=== PATIENT | female | born 1940 | race Two or more races ===

== ENCOUNTER → 2024-07-22 | Outpatient (CLI) | payer OTHER, SELFPAY ==
[2024-07-22 10:03] LABS: Basophils % (Auto) 0 % (0-2.5); Eosinophils # (Auto) 0.1 Thou/mm3 (0.0-0.5); Eosinophils % (Auto) 2 % (0-10); Hematocrit 40.9 % (36.0-46.0); Hemoglobin 13.7 g/dL (12.0-16.0); Immature Granulocytes % (Auto) 0 % (0-0); Immature Granulocytes Auto 0.01 Thou/mm3 (0.00-0.00); Lymphocytes # (Auto) 2.2 Thou/mm3 (1.0-4.8); Lymphocytes % (Auto) 33 % (10-50); Mean Corpuscular HGB Conc 33.5 g/dl (31.0-37.0); Mean Corpuscular Hemoglobin 29.2 pg (25.0-35.0); Mean Corpuscular Volume 87 fL (80-100); Monocytes # (Auto) 0.5 Thou/mm3 (0.0-0.8); Monocytes % (Auto) 7 % (0-12); Neutrophils # (Auto) 3.7 Thou/mm3 (1.8-7.7); Neutrophils % (Auto) 57 % (37-80); Nucleated Red Blood Cell % 0 /100 WBC (0); Platelet Count 440 Thou/mm3 (140-440); RDW Standard Deviation 42.8 fL (36.4-46.3); Red Blood Count 4.69 Miln/mm3 (4.00-5.20); White Blood Count 6.5 Thou/mm3 (3.6-11.0)
[2024-07-22 10:15] LABS: Glucose Estimated Average 137 mg/dL (80-131); Hemoglobin A1C 6.4 % Hgb (4.8-6.0)
[2024-07-22 11:25] LABS: Alanine Aminotransferase 10 U/L (10-49); Albumin, Serum 4.4 gm/dL (3.4-4.8); Albumin/Globulin Ratio 1.8 (1.2-2.2); Alkaline Phosphatase 82 U/L (46-116); Anion Gap 9 (7-16); Aspartate Amino Transferase 19 U/L (0-34); BUN/Creatinine Ratio 16 Ratio (12-20); Bilirubin,Total 0.4 mg/dL (0.3-1.2); Blood Urea Nitrogen 18 mg/dL (9-23); Calcium 9.7 mg/dL (8.3-10.6); Calcium (Corrected) 9.7 mg/dL (8.5-10.1); Carbon Dioxide 27.3 mMol/L (20.0-31.0); Cardiac Risk Estimate 3.7 RATIO (3.7-5.6); Chloride 105 mMol/L (98-107); Cholesterol 169 mg/dL (132-200); Creatinine (Component) 1.1 mg/dL (0.6-1.3); Globulin 2.4 gm/dL (2.3-3.5); Glucose 141 mg/dL (74-106); HDL Cholesterol 46 mg/dL (40-60); LDL Cholesterol,Calculated 99 mg/dL (0-130); Osmolality,Calculated 285 (275-295); Potassium 4.6 mMol/L (3.4-5.1); Sodium 141 mMol/L (136-145); Thyroid Stimulating Hormone 2.32 uIU/mL (0.55-4.78); Total Protein 6.8 gm/dL (5.7-8.2); Triglycerides 119 mg/dL (30-150); eGFR 50 See Note
[2024-07-22 14:42] LABS: Creatinine MALB Rnd Ur 43 mg/dL (30-125); Microalbumin Creat Ratio 21 mg/gCrea (<30); Microalbumin, Random Urine 9 mg/L (0-300)
== END | disposition home or self-care (01) ==
PROVIDERS: PCP Family Medicine; Referring Provider Family Medicine; Visit Provider Family Medicine
DX: I10 Essential (primary) hypertension (principal); E11.65 Type 2 diabetes mellitus with hyperglycemia
CPT/HCPCS: 36415; 80053; 80061; 82043; 82570; 83036; 84443; 85025

== ENCOUNTER → 2024-10-25 | Outpatient (CLI) | payer OTHER, SELFPAY ==
[2024-10-25 08:59] LABS: Glucose Estimated Average 143 mg/dL (80-131); Hemoglobin A1C 6.6 % Hgb (4.8-6.0)
== END | disposition home or self-care (01) ==
LOC: COPL 07:23
PROVIDERS: PCP Family Medicine; Referring Provider Family Medicine; Visit Provider Family Medicine
DX: E11.65 Type 2 diabetes mellitus with hyperglycemia (principal)
CPT/HCPCS: 36415; 83036

== ENCOUNTER → 2025-01-23 | Outpatient (CLI) | payer OTHER, SELFPAY ==
[2025-01-23 11:22] LABS: Glucose Estimated Average 174 mg/dL (80-131); Hemoglobin A1C 7.7 % Hgb (4.8-6.0)
== END | disposition home or self-care (01) ==
PROVIDERS: PCP Family Medicine; Referring Provider Family Medicine; Visit Provider Family Medicine
DX: E11.65 Type 2 diabetes mellitus with hyperglycemia (principal)
CPT/HCPCS: 36415; 83036

== ENCOUNTER 2025-04-27 07:50 | Emergency (ER) | payer OTHER, SELFPAY ==
[2025-04-27 08:04] VITALS: BP 184/76; BP 211/67; PULSE 57; RESP 19; TEMP 36.3; O2SAT 97
--- NOTE | 2025-04-27 08:09 | EKG_ITS ---
[facility] Test Date: 2025-04-27 Pat Name: MIL MCCORMICK Department: Room: - Gender: Female Household Cook: : 1940 Requested By: Jayme Wilks Order Number: [id number] Reading MD: Jayme Wilks Measurements Intervals [place] Rate: 53 P: 56 NV: 167 QRS: -18 QRSD: 86 T: 56 QT: 418 QTc: 395 Interpretive Statements SINUS BRADYCARDIA Compared to ECG 06/13/2022 09:20:05 No significant changes /store/S0/[id number].pdf
--- NOTE | 2025-04-27 08:09 | PD.EDRME ---
Rapid Medical Screening Exam RME Arrival date/time: 04/27/25 07:50 84-year-old female with a history of hypertension, type 2 diabetes presents to the emergency room with a chief complaint of dizziness and lightheadedness x 2 days I have greeted and performed a focused initial assessment of this patient. A comprehensive ED assessment and evaluation of the patient, analysis of all test results, and completion of the medical decision making process will be conducted by additional ED providers. Chief Complaint: Dizziness Time Seen by Provider: 04/27/25 08:00 Vital signs: Vital Signs Temperature 97.4 F 04/27/25 08:04 Pulse Rate 57 L 04/27/25 08:04 Respiratory Rate 19 04/27/25 08:04 Blood Pressure 211/67 H 04/27/25 08:04 Pulse Oximetry (%) 97 04/27/25 08:04 Oxygen Delivery Method Room Air 04/27/25 08:04 Vital signs reviewed by provider: Yes Exam: GCS of 15, AAO x 3 Pupils are PERRLA EOMs are intact Clear bilateral lung sounds. Strong and regular rhythm S1 and S2 noted Clinical Impression: STEMI/NSTEMI/dizziness/vertigo
[2025-04-27 08:40] LABS: Basophils # (Auto) 0.0 Thou/mm3 (0.0-0.2); Basophils % (Auto) 1 % (0-2.5); Eosinophils # (Auto) 0.1 Thou/mm3 (0.0-0.5); Eosinophils % (Auto) 2 % (0-10); Hematocrit 41.0 % (36.0-46.0); Hemoglobin 13.6 g/dL (12.0-16.0); Immature Granulocytes Auto 0.01 Thou/mm3 (0.00-0.00); Lymphocytes # (Auto) 1.8 Thou/mm3 (1.0-4.8); Lymphocytes % (Auto) 30 % (10-50); Mean Corpuscular HGB Conc 33.2 g/dl (31.0-37.0); Mean Corpuscular Hemoglobin 28.9 pg (25.0-35.0); Mean Corpuscular Volume 87 fL (80-100); Monocytes # (Auto) 0.5 Thou/mm3 (0.0-0.8); Monocytes % (Auto) 9 % (0-12); Neutrophils # (Auto) 3.5 Thou/mm3 (1.8-7.7); Neutrophils % (Auto) 59 % (37-80); Nucleated Red Blood Cell # 0.00 Thou/mm3 (0.00-0.00); Nucleated Red Blood Cell % 0 /100 WBC (0); Platelet Count 359 Thou/mm3 (140-440); RDW Standard Deviation 43.8 fL (36.4-46.3); Red Blood Count 4.71 Miln/mm3 (4.00-5.20); White Blood Count 5.9 Thou/mm3 (3.6-11.0)
[2025-04-27 09:26] LABS: INR 1.0 (0.9-1.3); Partial Thromboplastin Time 26.2 Seconds (22.0-36.0); Prothrombin Time 10.8 Seconds (9.0-12.2)
[2025-04-27 09:56] LABS: Alanine Aminotransferase < 7 U/L (10-49); Albumin, Serum 4.8 gm/dL (3.4-4.8); Albumin/Globulin Ratio 2.0 (1.2-2.2); Alkaline Phosphatase 120 U/L (46-116); Anion Gap 9 (7-16); Aspartate Amino Transferase 17 U/L (0-34); BUN/Creatinine Ratio 15 Ratio (12-20); Bilirubin,Total 0.4 mg/dL (0.3-1.2); Blood Urea Nitrogen 17 mg/dL (9-23); Calcium 9.7 mg/dL (8.3-10.6); Calcium (Corrected) 9.7 mg/dL (8.5-10.1); Carbon Dioxide 25.6 mMol/L (20.0-31.0); Chloride 106 mMol/L (98-107); Creatinine (Component) 1.1 mg/dL (0.6-1.3); Estimated Creatinine Clearance 30.3 mL/min (>60); Globulin 2.4 gm/dL (2.3-3.5); Glucose 116 mg/dL (74-106); Magnesium 2.2 mg/dL (1.6-2.6); Osmolality,Calculated 283 (275-295); Potassium 5.0 mMol/L (3.4-5.1); Sodium 141 mMol/L (136-145); Total Protein 7.2 gm/dL (5.7-8.2); eGFR 50 See Note
[2025-04-27 10:08] LABS: B-Type Natriuretic Peptide 52 pg/mL (0-100)
[2025-04-27 10:14] LABS: Troponin I 0.056 ng/mL (0.0-0.045)
[2025-04-27 10:20] VITALS: BP 171/76; BP 184/72; PULSE 64; RESP 18; TEMP 36.4; O2SAT 98
[2025-04-27 10:37] LABS: Collection Type, Urine Clean Catch; RBC,Urine 0 /hpf (0-3); Squamous Epithelial Cell,Urine 0 /hpf (0-5)
[2025-04-27 10:52] LABS: Bilirubin,Urine Negative (Negative); Blood,Urine Negative (Negative); Clarity,Urine Clear (Clear/Hazy); Color,Urine Colorless (Lt Yel-Yel); Culture Indicated,Urine Not Indicated; Glucose, Urine 4+ (Negative); Ketones,Urine Negative (Negative); Leukocyte Esterase,Urine Negative (Negative); Nitrite,Urine Negative (Negative); PH,Urine 7.0 (5.0-7.0); Protein,Urine Negative (Neg - Trace); Specific Gravity,Urine 1.004 (1.001-1.035); Urobilinogen,Urine Negative mg/dL (0.0-1.0); WBC,Urine < 1 /hpf (0-5)
[2025-04-27 11:28] LABS: Troponin I 0.058 ng/mL (0.0-0.045)
[2025-04-27 12:55] VITALS: BP 146/87; PULSE 83; RESP 19; TEMP 36.6; O2SAT 95
--- NOTE | 2025-04-27 14:07 | EDNOTE_ITS ---
<Statement entered by Venita Schilling MD - 04/27/25 14:32> As co-signing physician, I was present and available for consult prn. I concur with the plan and care as documented by the midlevel provider. ED General RME/HPI General Chief complaint: Dizziness Stated complaint: DIZZINESS WITH INCREASING BS Time Seen by Provider: 04/27/25 08:00 Arrival date/time: 04/27/25 07:50 CC: Intermittent dizziness x 1 month HPI patient states intermittent is the dizziness happens both in the mornings noon's and evenings. Patient states that she becomes very anxious which develops into her chest pain. At the time of the exam at 1400 this afternoon the patient has no longer any anxiety, chest pain or dizziness. Family member at bedside states the patient is on medications including amlodipine. Patient states she does not have a blanket maker however review the medical record shows that she had angiogram [place] [address] Schmitz, and again by Dr. Crabtree on the in 2021. Currently the patient is chest pain-free and dizziness free. RME / HPI RME / HPI narrative: 04/27/25 07:50 84-year-old female with a history of hypertension, type 2 diabetes presents to the emergency room with a chief complaint of dizziness and lightheadedness x 2 days I have greeted and performed a focused initial assessment of this patient. A comprehensive ED assessment and evaluation of the patient, analysis of all test results, and completion of the medical decision making process will be conducted by additional ED providers. Exam: GCS of 15, AAO x 3 Pupils are PERRLA EOMs are intact Clear bilateral lung sounds. Strong and regular rhythm S1 and S2 noted Impression: STEMI/NSTEMI/dizziness/vertigo Related Data Home Medications ?Medication ?Instructions ?Recorded ?Confirmed amlodipine 5 mg-benazepril 10 mg 5 mg PO QDAY 02/27/18 05/06/23 capsule insulin glargine U-300 conc 300 3 unit subcut QDAY 11/1105/06/23 unit/mL (1.5 mL) subcutaneous pen (Toujeo SoloStar U-300 Insulin) gemfibrozil 600 mg tablet 600 mg PO BID 05/06/2305/06 hydrochlorothiazide 25 mg tablet 25 mg 05/06/23 memantine 5 mg tablet 5 mg PO QAM 05/06/23 3 Previous Rx's ?Medication ?Instructions ?Recorded metformin 500 mg tablet 500 mg PO BIDAC #0 tabs 11/10 (Glucophage) Held on 06/14/22. Instructions: Resume on 06/16/22. DO NOT TAKE FOR 48 HOURS, MAY RESUME ON MONDAY losartan 25 mg tablet 25 mg PO QDAY #30 tabs 04/27 Allergies Allergy/AdvReac Type Severity Reaction Status Date / Time codeine Allergy Severe Abdominal Verified 05/06/23 08:14 Pain Review of Systems Review of Systems Narrative Review of Systems: GEN: No fever, no chills, no weight loss EYES: No discharge, no visual changes, no pain HEENT: No ear pain, no congestion, no sore throat PULM: No shortness of breath, no cough, no congestion CV: No chest pain, no dyspnea on exertion, no palpitations GI: No nausea, no vomiting, no diarrhea, no pain, no constipation : No frequency, no urgency, no dysuria MUSC/SKEL: No joint pain, no back pain SKIN: No rash PSYCH: No hallucinations, no depression HEME/LYMPH: No easy bleeding or bruising tendencies NEURO: No weakness, no headache Past Medical History Past Medical History NEUROLOGIC: Positive Neurological Disorders and Migraine CARDIAC: Positive Cardiac Disorders, Angina, Hypercholesterolemia, Congestive Heart Failure and Hypertension RESPIRATORY: Negative Chronic Obstructive Pulmonary Disease (COPD) GASTROINTESTINAL: Negative Gastrointestinal Disorders GENITOURINARY: Negative Genitourinary Disorders or Renal Disease REPRODUCTIVE: Positive Previous Pregnancies MUSCULOSKELETAL: Positive Musculoskeletal Disorders, Arthritis and Osteoporosis ENT: Positive Cataracts ENDOCRINE: Positive Endocrine Disorders and Diabetes Mellitus Type 2; Negative Diabetes Mellitus Type 1 HEMATOLOGIC: Negative Blood Disorders PSYCHO/SOCIAL: Positive Depression and Anxiety OTHER HISTORY: Positive Shingles and Chicken Pox; Negative Autoimmune Disease or Cancer Family History FAMILY HISTORY: Positive Family Cardiac Disorders and Family Cancer; Negative Family Psychiatric Problems, Family Respiratory Disorders, Family Gastrointestinal Problems, Family Surgery or Family Anesthesia Reaction Surgical History SURGICAL: Positive Section Social History SMOKING STATUS: Never smoker ED Exam Narrative Physical exam: [General: Thin borderline emaciated anxious but not in any acute distress Head normocephalic HEENT: Eyes pupils are PERRLA EOMs are intact mouth pink dry membranes uvula is midline all the subsystems of HEENT are within acceptable limits Neck is supple nontender Chest equal chest rise nontender to palpation Respiratory: Clear to auscultation no wheezes crackles or rubs CV: Rate rhythm is regular, bradycardic, no murmurs rubs or clicks Abdomen is flat, soft nontender no masses positive bowel sounds all 4 quadrants Back: No CVA tenderness no spinous process tenderness from cervical spine thoracic and lumbar spine Skin: Intact no petechiae rash induration ulceration or crepitus Extremities: Moving all extremity against resistance cap refill less than 2 seconds neurosensory intact. No lower extremity edema. Neuro: Awake alert oriented x3 Glascow coma 15 no focal deficits] Course Course Course Narrative: The patient is highly anxious, I suspect the chest pain is secondary to concerned about the repeated dizziness that has been ongoing for 1 month. Review of the patient's medication show she is on the low but amlodipine 5 mg which is a relatively small dose. I consulted Dr. Anneliese khoury, the last blanket maker to perform angiogram on her. He recommended if discharging the patient home have the option to convert from amlodipine to losartan to manage the blood pressure and see if this everts the persistent bradycardia. Patient is currently dizziness and pain-free will discharge the patient home. She is to follow-up promptly with Dr. Anneliese Scott's office. She is also advised if there is a worsening of symptoms return the ER for reevaluation.. Quality Measures none Orders Category Date Time Status EKG (ED ONLY) *Do not use* NOW Care 04/27/25 08:09 Completed Fingerstick [Bedside Blood Glucose] NOW Care 04/27/25 08:08 Active EKG (ED Only) Stat Exams 04/27/25 08:09 Draft B-Type Natriuretic Peptide Stat Lab 04/27/25 08:28 Completed CBC Stat Lab 04/27/25 08:28 Completed Comprehensive Metabolic Panel Stat Lab 04/27/25 08:28 Completed Magnesium Stat Lab 04/27/25 08:28 Completed Partial Thromboplastin Time Stat Lab 04/27/25 08:28 Completed Prothrombin Time with INR Stat Lab 04/27/25 08:28 Completed Troponin I Stat Lab 04/27/25 08:28 Completed Troponin I Stat Lab 04/27/25 10:43 Completed Urinalysis, C/S if Indicated Stat Lab 04/27/25 10:17 Completed Vital Signs Vital signs: Vital Signs Temperature 97.4 F 04/27/25 08:04 Pulse Rate 57 L 04/27/25 08:04 Respiratory Rate 19 04/27/25 08:04 Blood Pressure 211/67 H 04/27/25 08:04 Pulse Oximetry (%) 97 04/27/25 08:04 Oxygen Delivery Method Room Air 04/27/25 08:04 Discharge Plan Plan Patient Disposition: HOME (Self Care) Patient condition on transfer: Stable Prescriptions/Referrals Prescriptions/Med Rec: New losartan 25 mg tablet 25 mg PO QDAY Qty: 30 1RF No Action amlodipine-benazepril 5-10 mg Capsule 5 mg PO QDAY metformin [Glucophage] 500 MG tablet 500 mg PO BIDAC Qty: 0 0RF Rx Instructions: Hold until 03/02/18, (Monday) Then take as prescribed. Toujeo SoloStar U-300 Insulin 300 unit/mL (1.5 mL) Insulin Pen 3 unit SUBCUT QDAY Rx Instructions: DOSE DEPENDENT ON BLOOD SUGAR gemfibrozil 600 mg Tablet 600 mg PO BID memantine 5 mg Tablet 5 mg PO QAM hydrochlorothiazide 25 mg tablet 25 mg Referrals: [place] Crabtree MD [Physician, Cardiology] - In 1 week Britany De Los Santos MD [Primary Care Provider, Family Practice] - In 1 week Problem List Clinical Impression: Bradycardia, Dizziness, Chest pain Patient/Caregiver Discharge Instructions Other Activity Instructions:: Stop taking the amlodipine and start the losartan. If there is a persistent dizziness or recurrent chest pain that does not spontaneously resolve or is not manifested by anxiety return to the emergency room for reevaluation. Education Materials: ED Bradycardia, ED Chest Pain, Uncertain Cause, ED Dizziness, Uncertain Cause Additional Instructions: Eat more food, take your medications as prescribed, follow-up with your heart doctor. Get your dentures fixed. Take the medication as prescribed. If there is worsening chest pain return to the emergency room meetly for further evaluation. Print Language: Citizen Of [place] Stand Alone Forms: Alisha Award Info., Work/School Release, Patient Portal Info Letter PA/RONY Supervising Physician PA/GUEST EXPERIENCE MANAGER Supervising Physician: Anibal Jara ENP [facility] Clinical Information Provided by: patient Medical Records reviewed [facility] Meds/Rx considered, not ordered None Labs/Rad/Tests considered, not ordered None Chronic Illness/Social Conditions Explain: CAD diabetes hyperlipidemia EKG Interpretation EKG #1: EKG Interpretation: EKG performed at 0 817 shows a ventricular rate of 5 3 DC interval 167 QRS of 86 QTc of 402 this is sinus bradycardia. When compared to old EKGs the patient is persistently bradycardic. Labs Lab(s) Interpretation(s): CBC shows no acute leukocytosis anemia thrombocytopenia Coags within acceptable limits CMP shows no significant electrolyte imbalances renal impairment other than a glob glucose of 116, ALT is less than 7 alk phos is 120 initial troponin is 0.056, repeat delta troponin is 0.058. BNP is negative Urine shows 4+ glucose no other signs of infection. Imaging Imaging interpretation: none Medication Administration(s) none
== END 2025-04-27 14:25 | disposition home or self-care (01) ==
PROVIDERS: Nurse Practitioner Family; Emergency Provider Emergency Medicine; PCP Family Medicine
DX: R00.1 Bradycardia, unspecified (principal); R42 Dizziness and giddiness
CPT/HCPCS: 36415; 80053; 81001; 83735; 83880; 84484; 85025; 85610; 85730; 93005; 99282

== ENCOUNTER → 2025-05-05 | Outpatient (CLI) | payer OTHER, SELFPAY ==
[2025-05-05 10:12] LABS: Glucose Estimated Average 160 mg/dL (80-131); Hemoglobin A1C 7.2 % Hgb (4.8-6.0)
== END | disposition home or self-care (01) ==
LOC: COPL 08:02
PROVIDERS: PCP Family Medicine; Referring Provider Family Medicine; Visit Provider Family Medicine
DX: E11.65 Type 2 diabetes mellitus with hyperglycemia (principal)
CPT/HCPCS: 36415; 83036